=== PATIENT | male | born 1950 | race American Indian/Alaskan Native ===

== ENCOUNTER 2016-10-26 21:11 | Emergency (ER) | payer MEDICAID ==
[2016-10-26] MEDS ORDERED: NACL 0.9% 1000 ML 1,000 ML IV ONE (22:22)
[2016-10-26] MEDS ORDERED: BOOSTRIX IM ONE (22:22)
[2016-10-26] MEDS ORDERED: ZOFRAN IV ONE (22:22)
[2016-10-26 22:58] LABS: Basophils % (Auto) 1.3 % (0.0-1.8); Eosinophils % (Auto) 1.3 % (0.0-4.3); Hematocrit 42.5 % (35.5-45.6); Hemoglobin 13.4 gm/dl (11.8-15.2); Mean Corpuscular HGB Conc 32 % (32-34); Mean Corpuscular Hemoglobin 29 pg (28-32); Mean Corpuscular Volume 93 fl (84-94); Platelet Count 198 K/mm3 (140-440); Red Blood Count 4.57 M/mm3 (3.65-5.03); Red Cell Distribution Width 14.4 % (13.2-15.2); White Blood Count 6.7 K/mm3 (4.5-11.0)
[2016-10-26 23:20] LABS: Alanine Aminotransferase 11 units/L (7-56); Albumin 3.9 g/dL (3.9-5); Albumin/Globulin Ratio 1.4 %; Alkaline Phosphatase 93 units/L (35-129); Anion Gap 20 mmol/L; BUN/Creatinine Ratio 8.75; Bilirubin,Total 0.7 mg/dL (0.1-1.2); Blood Urea Nitrogen 7 mg/dL (9-20); Calcium 9.4 mg/dL (8.4-10.2); Carbon Dioxide 25 mmol/L (22-30); Glucose 94 mg/dL (75-100); Potassium 3.5 mmol/L (3.6-5.0); Sodium 141 mmol/L (137-145); Total Protein 6.7 g/dL (6.3-8.2)
--- NOTE | 2016-10-26 23:22 | Emergency Department Report ---
ED Head Trauma HPI - General Chief complaint: Fall Stated complaint: FALL Time Seen by Provider: 10/26/16 21:47 Source: EMS Mode of arrival: Stretcher Limitations: No Limitations - History of Present Illness MD Complaint: head injury, head pain, fall -: Sudden Arrival Conditions: Negative: C-spine immobilization present, spinal board immobilization present Mechanism of Injury: mechanical fall, other Location: frontal Loss of Consciousness: no Previous Trauma to this Area: No Place: home Radiation: none Severity: mild Quality: sharp Consistency: constant Provoking factors: other (etoh) Associated Symptoms: weakness. denies: confusion, amnesia, repetitive questioning, vision changes, nausea, vomiting, vertigo, syncope, tingling - Related Data Previous Rx's Medication Instructions Recorded Last Taken Type HYDROcodone/APAP 5-325 [[place] 1 each PO Q6HR PRN #20 tablet 10/30/15 Unknown Rx 5/325] amLODIPine [Norvasc] 10 mg PO DAILY #30 tab 10/30/15 Unknown Rx Allergies/Adverse reactions: Allergies Allergy/AdvReac Type Severity Reaction Status Date / Time bee venom (honey bee) Allergy Swelling Verified 10/31/13 04:10 pollen Allergy Swelling Uncoded 10/31/13 04:10 seafood Allergy Swelling Uncoded 10/31/13 04:10 ED Review of Systems ROS: Stated complaint: FALL Other details as noted in HPI Constitutional: denies: chills, fever Eyes: denies: eye pain, eye discharge, vision change ENT: denies: ear pain, throat pain Respiratory: denies: cough, shortness of breath, wheezing Cardiovascular: denies: chest pain, palpitations Endocrine: no symptoms reported Gastrointestinal: denies: abdominal pain, nausea, diarrhea Genitourinary: denies: urgency, dysuria Musculoskeletal: denies: back pain, joint swelling, arthralgia Skin: denies: rash, lesions Neurological: denies: headache, weakness, paresthesias Psychiatric: denies: anxiety, depression Hematological/Lymphatic: denies: easy bleeding, easy bruising ED Past Medical Hx - Past Medical History Hx Hypertension: Yes Hx Diabetes: Yes Hx Arthritis: Yes Hx Asthma: Yes Additional medical history: GOUT, ETOH ABUSE, KIMBELREY LEG WEAKNESS, AMBULATES W/ WALKER - Surgical History Additional Surgical History: bilat total hip, Right ankle fusion - Social History Smoking Status: Current Every Day Smoker Substance Use Type: Alcohol - Medications Home Medications: Home Medications Medication Instructions Recorded Confirmed Last Taken Type HYDROcodone/APAP 5-325 [[place] 1 each PO Q6HR PRN #20 tablet 10/30/15 Unknown Rx 5/325] amLODIPine [Norvasc] 10 mg PO DAILY #30 tab 10/30/15 Unknown Rx ED Physical Exam - General Limitations: No Limitations General appearance: alert, appears intoxicated - Head Head exam: Present: normocephalic, other (mild abrassion and hematoma in frontal area) - Eye Eye exam: Present: normal appearance - ENT ENT exam: Present: normal exam, normal orophraynx, mucous membranes moist - Neck Neck exam: Present: normal inspection - Respiratory Respiratory exam: Present: normal lung sounds bilaterally. Absent: respiratory distress - Cardiovascular Cardiovascular Exam: Present: regular rate, normal rhythm. Absent: systolic murmur, diastolic murmur, rubs, gallop - GI/Abdominal GI/Abdominal exam: Present: soft, normal bowel sounds - Rectal Rectal exam: Present: deferred - Extremities Exam Extremities exam: Present: normal inspection - Back Exam Back exam: Present: normal inspection - Neurological Exam Neurological exam: Present: alert, oriented X3, CN II-XII intact, abnormal gait - Psychiatric Psychiatric exam: Present: normal affect, normal mood - Skin Skin exam: Present: warm, dry, intact, normal color. Absent: rash ED Course Vital Signs 10/26/16 10/26/16 10/26/16 21:22 21:30 21:39 Temperature 98.2 F Pulse Rate 92 H 96 H Respiratory 19 18 Rate Blood Pressure 149/89 Blood Pressure 145/88 [Left] O2 Sat by Pulse 95 95 96 Oximetry 10/26/16 10/26/16 10/26/16 21:40 21:41 21:51 Temperature 98.2 F Pulse Rate 93 H 95 H 92 H Respiratory 18 18 15 Rate Blood Pressure 145/88 149/89 159/100 Blood Pressure [Left] O2 Sat by Pulse 96 96 96 Oximetry 10/26/16 10/26/16 10/26/16 22:00 22:11 22:21 Temperature Pulse Rate 94 H 93 H Respiratory 19 25 H Rate Blood Pressure 152/92 152/92 152/92 Blood Pressure [Left] O2 Sat by Pulse 95 96 81 L Oximetry 10/26/16 10/26/16 10/26/16 22:31 22:45 22:51 Temperature Pulse Rate 91 H 98 H Respiratory 21 Rate Blood Pressure 155/91 153/92 157/100 Blood Pressure [Left] O2 Sat by Pulse 95 97 Oximetry - Lab Data Result diagrams: 10/26/16 22:44 10/26/16 22:44 Lab Results 10/26/16 10/26/16 10/26/16 Range/Units 22:44 22:44 22:44 WBC 6.7 (4.5-11.0) K/mm3 RBC 4.57 (3.65-5.03) M/mm3 Hgb 13.4 (11.8-15.2) gm/dl Hct 42.5 (35.5-45.6) % MCV 93 (84-94) fl MCH 29 (28-32) pg MCHC 32 (32-34) % RDW 14.4 (13.2-15.2) % Plt Count 198 (140-440) K/mm3 Lymph % (Auto) 31.0 (13.4-35.0) % Pratt % (Auto) 7.4 H (0.0-7.3) % Eos % (Auto) 1.3 (0.0-4.3) % Baso % (Auto) 1.3 (0.0-1.8) % Lymph # 2.1 (1.2-5.4) K/mm3 Pratt # 0.5 (0.0-0.8) K/mm3 Eos # 0.1 (0.0-0.4) K/mm3 Baso # 0.1 (0.0-0.1) K/mm3 Seg Neutrophils % 59.0 (40.0-70.0) % Seg Neutrophils # 3.9 (1.8-7.7) K/mm3 Sodium 141 (137-145) mmol/L Potassium 3.5 L (3.6-5.0) mmol/L Chloride 100.0 (98-107) mmol/L Carbon Dioxide 25 (22-30) mmol/L Anion Gap 20 mmol/L BUN 7 L (9-20) mg/dL Creatinine 0.8 (0.8-1.5) mg/dL Estimated GFR > 60 ml/min BUN/Creatinine Ratio 8.75 % Glucose 94 (75-100) mg/dL Calcium 9.4 (8.4-10.2) mg/dL Total Bilirubin 0.7 (0.1-1.2) mg/dL AST 20 (5-40) units/L ALT 11 (7-56) units/L Alkaline Phosphatase 93 (35-129) units/L Total Protein 6.7 (6.3-8.2) g/dL Albumin 3.9 (3.9-5) g/dL Albumin/Globulin Ratio 1.4 % Plasma/Serum Alcohol 0.21 H (0-0.07) gm% - Medical Decision Making Patient been doing well here in the ER, tolerating po here , labs negative except for high etoh level, head CT with no acute findings,. Will dc and follow up. - Core Measures AMI Core Measures Followed: No - NEXUS Criteria Focal neurological deficit present: No Midline spinal tenderness present: No Altered level of consciousness: No Intoxication present: No Distracting injury present: No NEXUS results: C-Spine can be cleared clinically by these results. Imaging is not required. Critical care attestation.: If time is entered above; I have spent that time in minutes in the direct care of this critically ill patient, excluding procedure time. ED Disposition Clinical Impression: ETOH abuse, Head injury Disposition: DISCHARGED TO HOME OR SELFCARE Is pt being admited?: No Does the pt Need Aspirin: No Condition: Good Instructions: Abuse of Alcohol (ED) Referrals: PRIMARY CARE, [Primary Care Provider] - 3-5 Days Time of Disposition: 00:30
--- NOTE | 2016-10-26 23:37 | Cat Scan Report ---
FINAL REPORT PROCEDURE: CT HEAD/BRAIN WO CON TECHNIQUE: Computerized tomography of the head was performed without contrast material. HISTORY: Fall COMPARISON: No prior studies are available for comparison. FINDINGS: Skull and scalp: There is focal left frontal soft tissue swelling. There is no skull fracture.. Paranasal sinuses: Normal. Ventricles and subarachnoid spaces: There is mild central and cortical atrophy. There is no hydrocephalus per. Cerebrum: No evidence of hemorrhage, acute infarction or mass. There is chronic deep white matter ischemic gliosis. 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 Cerebellum and brainstem: No evidence of hemorrhage, acute infarction or mass. Vasculature: Normal. Comments: There is fluid in the left mastoid air cells.. IMPRESSION: There is frontal scalp swelling. There is no skull fracture. There is no intracranial hemorrhage.
[2016-10-27 01:15] VITALS: BP 172/103
== END 2016-10-27 01:15 | disposition home or self-care (01) ==
LOC: ED 21:11
DX: S09.90XA Unspecified injury of head, initial encounter (principal); F10.10 Alcohol abuse, uncomplicated; I10 Essential (primary) hypertension; E11.9 Type 2 diabetes mellitus without complications; M19.90 Unspecified osteoarthritis, unspecified site; M10.9 Gout, unspecified; Z91.048 Other nonmedicinal substance allergy status; Z91.013 Allergy to seafood; F17.200 Nicotine dependence, unspecified, uncomplicated; Z91.030 Bee allergy status; W19.XXXA Unspecified fall, initial encounter; Y93.89 Activity, other specified; Y92.89 Other specified places as the place of occurrence of the external cause; Y99.8 Other external cause status
CPT/HCPCS: 36415; 70450; 80053; 85025; 90471; 90715; 96361; 96374; 99284; G0480; J2405; J7030; 80320